=== PATIENT | male | born 1955 ===

== ENCOUNTER 2017-10-02 13:19 | Inpatient (IN) | payer MEDICAID ==
[2017-10-02] MEDS: NS 0.9% 1000 ML*IV.FLUID IV ONE ×2 (13:53→15:40)
--- NOTE | 2017-10-02 14:19 | RAD ---
INDICATION: Shortness of breath. COMPARISON: There are no prior studies available for comparison. TECHNIQUE: A portable view of the chest was obtained. FINDINGS: The heart is within normal limits in size. There is a patchy infiltrate in the mid and lower right lung field. There is suggestion of mild volume loss in the right lung. The left lung appears clear. No pleural effusion is seen. IMPRESSION: RIGHT LUNG INFILTRATE, RECOMMEND FOLLOW-UP CHEST X-RAYS TO RESOLUTION.
[2017-10-02 14:30] LABS: ABS Basophils 0.1 10^3/ul (0-0.2); ABS Eosinophils 0.1 10^3/ul (0-0.6); ABS Lymphocytes 0.7 10^3/ul (1.0-4.8); ABS Monocytes 0.7 10^3/ul (0-0.8); ABS Neutrophils 18.6 10^3/ul (1.5-7.7); ABS Nucleated RBC 0 10^3/ul; Eosinophil % 0.3 % (0-6); Hematocrit 38 % (42-52); Hemoglobin 12.1 g/dl (14.0-18.0); Lymphocyte % 3.3 % (25-47); Mean Corpuscular HGB Conc 32 g/dl (31-36); Mean Corpuscular Hemoglobin 28 pg (27-31); Mean Corpuscular Volume 86 fL (80-94); Nucleated Red Blood Cells % 0; Platelet Count 514 10^3/ul (150-450); Red Blood Count 4.39 10^6/ul (4.0-5.4); Red Cell Distribution Width 14 % (10.5-15); White Blood Count 20.1 10^3/ul (3.5-10.8)
[2017-10-02 14:40] LABS: INR 1.3 (0.77-1.02)
[2017-10-02 14:49] LABS: EGFR Non-African American 62.1 (>60)
[2017-10-02] MEDS ORDERED: Oseltamivir CAP* 75 MG CAP PO ONE (15:27)
[2017-10-02] MEDS ORDERED: Levofloxacin 750 MG IVPREMIX(* 750 MG/150 ML BAG IVPB ONE (15:27)
[2017-10-02] MEDS ORDERED: Acetaminophen TAB* 325 MG PO PRN (17:16)
[2017-10-02] MEDS ORDERED: PROCHLORPERAZINE INJ 5 MG/ML 2 ML VIAL IV PRN (17:16)
[2017-10-02] MEDS ORDERED: Albuterol/Ipratropium NEB.SOL* Albuterol 2.5 MG/Ipratropium 0.5 MG 3 ML INH PRN (17:16)
--- NOTE | 2017-10-02 21:07 | HP ---
CC: HUGO Francisco * HISTORY AND PHYSICAL: DATE OF ADMISSION: 10/02/17 TIME OF EVALUATION: 4:45 p.m. PRIMARY CARE PROVIDER: HUGO Francisco CHIEF COMPLAINT: "I got the flu." HISTORY OF PRESENT ILLNESS: Mr. Jenkins is a 62-year-old male with a past medical history of COPD, coronary artery disease status post stent who presented to the emergency room with complaints of cough, shortness of breath, and body aches. He states that a week ago, he started to have body aches, chills, cough, shortness of breath and the symptoms have progressed over time. He did not seek medical attention and today he felt really worse as he started to have some nausea, diarrhea on top of his respiratory symptoms. He states sick contacts at home. On arrival to the emergency room, he was found to be febrile with a temperature of 102, tachycardic, and his workup revealed influenza and pneumonia, the reason why the hospitalist service was called for admission. PAST MEDICAL HISTORY: 1. COPD. The patient is on home O2. 2. Coronary artery disease. The patient states he had stents placed years ago in [place], but when asked the name of the hospital or the town so we could records, he states that he does not remember that he moved around a lot and does not know. MEDICATION LIST: None. The patient states since he moved to [place] 2 years ago, he did not have a primary care provider, so he stopped taking his medications since. ALLERGIES: No known drug allergies. SOCIAL HISTORY: The patient was a smoker since he was a teenager up to 2 packs a day and he quit in 2011. He denies alcohol or drug use. The patient lives with his cousin and she is his surrogate decision maker, Esmer Silva, phone number is [phone]. REVIEW OF SYSTEMS: A 14-point review of systems was performed, and all the pertinent negative and positive findings are in the HPI. PHYSICAL EXAMINATION GENERAL: The patient is middle-aged male with a disheveled appearance, sitting up in the ED stretcher, in no acute distress. VITAL SIGNS: Temperature 102, heart rate is 97, respiratory rate is 22, oxygen saturation 95% on 2 L nasal cannula, and blood pressure is 120/68. HEENT: Pupils are equal. Moist mucous membranes. CHEST: Breath sounds are present bilaterally with scattered wheeze. CVS: Normal S1, S2. Regular rate and rhythm. ABDOMEN: Soft. Bowel sounds are present. EXTREMITIES: No edema. NEURO: He is alert, oriented x3. Able to move all 4 extremities. LABORATORY AND IMAGING DATA: The patient had a CBC that showed WBC 20.1, hemoglobin of 12.1, hematocrit of 38, platelets of 514 with 92% neutrophils. INR is 1.3. Chemistries showed a sodium of 136, potassium 4.8, chloride 103, CO2 24, BUN 17, creatinine of 1.19, glucose of 114. Lactic acid of 1.1. Calcium of 9. LFTs are normal. Troponin 0.12. CRP is 186.5. Procalcitonin is 0.3. Influenza B was positive. Chest x-ray showed a right lung infiltrate. EKG done on 10/02/17 at 1:30 p.m. showed sinus tachycardia at 106 beats per minute with PVC. There is no prior EKG to compare. ASSESSMENT AND PLAN: Mr. Jenkins is a 62-year-old male with a past medical history of chronic obstructive pulmonary disease, coronary artery disease and noncompliance, who presented to the emergency room with complaints of shortness of breath, cough, and fever found to have severe sepsis secondary to influenza and pneumonia. 1. Severe sepsis. The patient's presentation was compatible with systemic inflammatory response syndrome on admission with fever, tachycardia, and leukocytosis. He also has suspected acute kidney injury and elevated troponins. Source is influenza and pneumonia. 2. Influenza. The patient will be continued on Tamiflu. 3. Pneumonia. Blood cultures were sent. His sputum culture will be ordered and we are also going to check Legionella and pneumococcal antigen. He will be started on levofloxacin empirically. We are going to continue IV hydration and bronchodilators. 4. Chronic obstructive pulmonary disease. At this point, his chronic obstructive pulmonary disease appears to be stable. We are going to continue bronchodilators. 5. Elevated troponin. Suspect demand ischemia in a patient with reported coronary artery disease. Unfortunately, the patient does not recall the name of the hospital or the town where he had his procedure done, so we would not be able to obtain records at this point. I am going to start him on aspirin. He is going to have serial troponins and I am going to check an echocardiogram to assess his LV function. We are going to check serial troponins until they peak. Depending on the result, he may require a stress test after his infection is resolved. 6. Probable acute kidney injury. The patient's creatinine is 1.19, but we do not have a prior value to compare. He will be continued on IV hydration and we will monitor his renal function. We are going to check a urinalysis. 7. DVT prophylaxis. The patient has a score of 3 on the DVT Prophylaxis Risk Assessment Guide and he will be started on subcutaneous heparin. 8. Code status is full. I am also going to request a social media content specialist consultation to assist with his medical noncompliance. TIME SPENT: Approximately 65 minutes was spent with the patient interview, medical records review, physical examination to complete this admission; more than half of this time was spent [id number] with the patient and coordination of care. [id number]/[facility] #: [id number] SHARRI
--- NOTE | 2017-10-02 21:27 | ED ---
Jim Kemp Gabriel, scribed for Woody Stanley MD on 10/02/17 at 1400 . Influenza-Like Illness - HPI Summary HPI Summary: This patient is a 62 year old M BIBA to [facility] with a chief complaint of flu like illness that began today. The patient rates the pain 2/10 in severity. Patient reports fever, cough, general malaise, decrease appetite, diarrhea, and nasal congestion. Pt is on 2L NC at home. Hx COPD - History of Current Complaint Chief Complaint: EDFluSymptoms Time Seen by Provider: 10/02/17 13:29 Hx Obtained From: Patient Onset/Duration: Lasting Hours, Still Present Severity: Moderate Associated Signs & Symptoms: Fever, Cough, Nasal Congestion, Diarrhea - Allergy/Home Medications Allergies/Adverse Reactions: Allergies Allergy/AdvReac Type Severity Reaction Status Date / Time No Known Allergies Allergy Verified 10/02/17 13:27 Home Medications: Home Medications NK [No Home Medications Reported] 10/02/17 [History Confirmed 10/02/17] PMH/Surg Hx/FS Hx/Imm Hx Respiratory History: Reports: Hx Chronic Obstructive Pulmonary Disease (COPD) Sensory History: Reports: Hx Contacts or Glasses Opthamlomology History: Reports: Hx Contacts or Glasses EENT History: Denies: Hx Deafness Infectious Disease History: No Infectious Disease History: Denies: Traveled Outside the [place] in Last 30 Days - Family History Known Family History: Positive: Respiratory Disease Negative: Seizure Disorder - Social History Alcohol Use: None Substance Use Type: Reports: None Smoking Status (MU): Former Smoker Review of Systems Constitutional: Other - decreased appetite Positive: Fever, Other - general malaise Positive: Other - nasal congestion Positive: Cough Positive: Diarrhea All Other Systems Reviewed And Are Negative: Yes Physical Exam - Summary Physical Exam Summary: Appearance: The patient is an elderly male who is ill appearing Skin: The skin is warm and dry and skin color reflects adequate perfusion. HEENT: The head is normocephalic and atraumatic. The pupils are equal and reactive. The conjunctivae are clear and without drainage. Nares are patent and without drainage. Mouth reveals moist mucous membranes and the throat is without erythema and exudate. The external ears are intact. The ear canals are patent and without drainage. The tympanic membranes are intact. Neck: the neck is supple with full range of motion and non-tender. There are no carotid bruits. There is no neck vein distension. Respiratory: Chest is non-tender. No retraction with breathing no accessory muscle use. Extremely diminished breath sounds Cardiovascular: tachycardic and rhythm. There is no murmur or rub auscultated. There is no peripheral edema and pulses are symmetrical and equal. Abdomen: The abdomen is soft and non-tender. There are normal bowel sounds heard in all four quadrants and there is no organomegaly palpated. Musculoskeletal: There is no back tenderness noted. Extremities are non-tender with full range of motion. There is good capillary refill. There is no peripheral edema or calf tenderness elicited. Neurological: Patient is alert and oriented to person, place and time. The patient has symmetrical motor strength in all four extremities. Cranial nerves are grossly intact. Deep tendon reflexes are symmetrical and equal in all four extremities. Psychiatric: The patient has an appropriate affect and does not exhibit any anxiety or depression. Triage Information Reviewed: Yes Vital Signs On Initial Exam: Initial Vitals Pulse Resp Pulse Ox 143 29 90 10/02/17 13:24 10/02/17 13:24 10/02/17 13:24 Vital Signs Reviewed: Yes Diagnostics - Vital Signs Vital Signs Temp Pulse Resp BP Pulse Ox 10/02/17 13:26 139 22 93/76 92 10/02/17 13:25 102 F 146 26 93/76 89 10/02/17 13:24 143 29 90 - Laboratory Lab Results: Lab Results 10/02/17 10/02/17 10/02/17 Range/Units 13:50 14:15 14:15 WBC (3.5-10.8) 10^3/ul RBC (4.0-5.4) 10^6/ul Hgb (14.0-18.0) g/dl Hct (42-52) % MCV (80-94) fL MCH (27-31) pg MCHC (31-36) g/dl RDW (10.5-15) % Plt Count (150-450) 10^3/ul MPV (7.4-10.4) um3 Neut % (Auto) (38-83) % Lymph % (Auto) (25-47) % [place] % (Auto) (0-7) % Eos % (Auto) (0-6) % Baso % (Auto) (0-2) % Absolute Neuts (auto) (1.5-7.7) 10^3/ul Absolute Lymphs (auto) (1.0-4.8) 10^3/ul Absolute Monos (auto) (0-0.8) 10^3/ul Absolute Eos (auto) (0-0.6) 10^3/ul Absolute Basos (auto) (0-0.2) 10^3/ul Absolute Nucleated RBC 10^3/ul Nucleated RBC % INR (Anticoag Therapy) 1.30 H (0.77-1.02) APTT 30.6 (26.0-36.3) seconds Sodium 136 L (139-145) mmol/L Potassium 4.8 (3.5-5.0) mmol/L Chloride 103 (101-111) mmol/L Carbon Dioxide 24 (22-32) mmol/L Anion Gap 9 (2-11) mmol/L BUN 17 (6-24) mg/dL Creatinine 1.19 H (0.67-1.17) mg/dL Est GFR ( Amer) 79.9 (>60) Est GFR (Non-Af Amer) 62.1 (>60) BUN/Creatinine Ratio 14.3 (8-20) Glucose 114 H (70-100) mg/dL Lactic Acid (0.5-2.0) mmol/L Calcium 9.0 (8.6-10.3) mg/dL Total Bilirubin 0.40 (0.2-1.0) mg/dL AST 16 (13-39) U/L ALT 16 (7-52) U/L Alkaline Phosphatase 68 (34-104) U/L Troponin I 0.12 H* (<0.04) ng/mL C-Reactive Protein 186.50 H (< 5.00) mg/L Total Protein 8.2 (6.4-8.9) g/dL Albumin 3.1 L (3.2-5.2) g/dL Globulin 5.1 H (2-4) g/dL Albumin/Globulin Ratio 0.6 L (1-3) Procalcitonin (<0.6) ng/mL Influenza A (Rapid) Negative (Negative) Influenza B (Rapid) Positive A (Negative) 10/02/17 10/02/17 10/02/17 Range/Units 14:15 14:15 14:15 WBC 20.1 H (3.5-10.8) 10^3/ul RBC 4.39 (4.0-5.4) 10^6/ul Hgb 12.1 L (14.0-18.0) g/dl Hct 38 L (42-52) % MCV 86 (80-94) fL MCH 28 (27-31) pg MCHC 32 (31-36) g/dl RDW 14 (10.5-15) % Plt Count 514 H (150-450) 10^3/ul MPV 7.0 L (7.4-10.4) um3 Neut % (Auto) 92.7 H (38-83) % Lymph % (Auto) 3.3 L (25-47) % [place] % (Auto) 3.4 (0-7) % Eos % (Auto) 0.3 (0-6) % Baso % (Auto) 0.3 (0-2) % Absolute Neuts (auto) 18.6 H (1.5-7.7) 10^3/ul Absolute Lymphs (auto) 0.7 L (1.0-4.8) 10^3/ul Absolute Monos (auto) 0.7 (0-0.8) 10^3/ul Absolute Eos (auto) 0.1 (0-0.6) 10^3/ul Absolute Basos (auto) 0.1 (0-0.2) 10^3/ul Absolute Nucleated RBC 0 10^3/ul Nucleated RBC % 0 INR (Anticoag Therapy) (0.77-1.02) APTT (26.0-36.3) seconds Sodium (139-145) mmol/L Potassium (3.5-5.0) mmol/L Chloride (101-111) mmol/L Carbon Dioxide (22-32) mmol/L Anion Gap (2-11) mmol/L BUN (6-24) mg/dL Creatinine (0.67-1.17) mg/dL Est GFR ( Amer) (>60) Est GFR (Non-Af Amer) (>60) BUN/Creatinine Ratio (8-20) Glucose (70-100) mg/dL Lactic Acid 1.1 (0.5-2.0) mmol/L Calcium (8.6-10.3) mg/dL Total Bilirubin (0.2-1.0) mg/dL AST (13-39) U/L ALT (7-52) U/L Alkaline Phosphatase (34-104) U/L Troponin I (<0.04) ng/mL C-Reactive Protein (< 5.00) mg/L Total Protein (6.4-8.9) g/dL Albumin (3.2-5.2) g/dL Globulin (2-4) g/dL Albumin/Globulin Ratio (1-3) Procalcitonin 0.3 (<0.6) ng/mL Influenza A (Rapid) (Negative) Influenza B (Rapid) (Negative) Result Diagrams: 10/02/17 14:15 10/02/17 14:15 Lab Statement: Any lab studies that have been ordered have been reviewed, and results considered in the medical decision making process. - Radiology CXR Radiology Interpretation Completed By: Radiologist - RIGHT LUNG INFILTRATE, RECOMMEND FOLLOW-UP CHEST X-RAYS TO RESOLUTION. Dr. Stanley has reviewed this report - EKG 13:30 Cardiac Rate: Tachycardia EKG Rhythm: Sinus Tachycardia - at 136 BPM EKG Interpretation: PVC's Re-Evaluation - Re-Evaluation First Eval Re-Evaluation Time: 16:15 Change: Unchanged Comment: I discussed admission with the patient. Flu Symptom Course/Dx - Course Course Of Treatment: Mr. Jenkins presented with cough and congestion and SOB although he is normally SOB. He presented febrile and tachycardic and was given IV fluids. CXR revealed an infiltrate and he was given Levaquin and his flu swab was positive so he got Tamiflu. He is being admitted to the hospitalist service. - Diagnoses Provider Diagnoses: Influenza, Sepsis, PNA (pneumonia) - Physician Notifications Discussed Care Of Patient With: Justyn Sosa Time Discussed With Above Provider: 16:10 Instructed by Provider To: Admit As Inpatient Critical Care Time: 30-74 min Discharge - Sign-Out/Discharge Documenting (check all that apply): Discharge - Discharge Plan Condition: Fair Disposition: ADMITTED TO [facility] - Billing Disposition and Condition Condition: FAIR Disposition: [facility] [place] The documentation as recorded by the Jim curran Gabriel accurately reflects the service I personally performed and the decisions made by me, Wooyd Stanley MD.
[2017-10-02 22:19] LABS: Urine Appearance Turbid; Urine Blood Negative (Negative); Urine Color Amber; Urine Ketones Trace (Negative); Urine Protein 1+(30 mg/dL) (Negative); Urine Specific Gravity 1.023 (1.010-1.030); Urine Urobilinogen Negative (Negative)
[2017-10-02] MEDS: Aspirin EC TAB* 81 MG TAB.EC PO SCH (22:38)
[2017-10-02] MEDS: NS 0.9% 1000 ML* 1,000 ML IV SCH (22:47)
[2017-10-02] MEDS: Heparin VIAL(*) 5000 UNITS/ML VIAL (FIVE THOUSAND) SUBCUT SCH (22:54)
--- NOTE | 2017-10-03 02:51 | PN ---
Progress Note - Progress Note Date of Service: 10/03/17 Note: paged for positive trop. Initial two were negative. Concern this is a false positive. Patient is not having chest pain currently. Will repeat troponin now.
[2017-10-03] MEDS: Oseltamivir CAP* 75 MG CAP PO SCH ×3 (03:58→20:22)
[2017-10-03 05:15] LABS: ABS Basophils 0 10^3/ul (0-0.2); ABS Eosinophils 0 10^3/ul (0-0.6); ABS Lymphocytes 0.5 10^3/ul (1.0-4.8); ABS Monocytes 0.3 10^3/ul (0-0.8); ABS Neutrophils 8.9 10^3/ul (1.5-7.7); ABS Nucleated RBC 0 10^3/ul; Eosinophil % 0 % (0-6); Hematocrit 34 % (42-52); Hemoglobin 10.8 g/dl (14.0-18.0); Mean Corpuscular HGB Conc 32 g/dl (31-36); Mean Corpuscular Hemoglobin 28 pg (27-31); Mean Corpuscular Volume 86 fL (80-94); Mean Platelet Volume 6.8 um3 (7.4-10.4); Nucleated Red Blood Cells % 0; Platelet Count 435 10^3/ul (150-450); Red Blood Count 3.92 10^6/ul (4.0-5.4); Red Cell Distribution Width 14 % (10.5-15); White Blood Count 9.7 10^3/ul (3.5-10.8)
[2017-10-03 05:28] LABS: EGFR Non-African American 74.2 (>60)
[2017-10-03] MEDS: Heparin VIAL(*) 5000 UNITS/ML VIAL (FIVE THOUSAND) SUBCUT SCH ×3 (06:23→20:22)
[2017-10-03] MEDS: Aspirin EC TAB* 81 MG TAB.EC PO SCH (08:22)
[2017-10-03] MEDS ORDERED: Perflutren Lipid Microsphere* 3 ML VIAL ONE (09:04)
[2017-10-03] MEDS: NS 0.9% 1000 ML* 1,000 ML IV SCH (10:04)
[2017-10-03] MEDS: methylPREDNISolone SOD 40 MG* 1 ML VIAL IV SCH (12:01)
--- NOTE | 2017-10-03 12:10 | ECHO ---
Patient: SARABJIT GUZMAN [facility] Rec#: [id number] : 1955 Date: 10/03/2017 Age: 62y Height: 177.8 cm / 70.0 in Weight: 95.25 kg / 209.9 lbs Sex: M BSA: 2.13 Room#: 435 Admit Date#: 10/02/2017 Type: Inpatient Referring: Lissette Zuniga MD Reading: Travis Reed MD Tugboat Captain: Elaine Quintero RDCS CC: Sarabjit HUGO Mcmanus Transthoracic Echocardiogram Indication: Dyspnea,CAD BP: 137/79 HR: 92 Rhythm: NSR Findings History: COPD with home oxygen,CAD with prior PCI,SOB. This study was completed with HOB at 90 degrees . Completed at 0958. Technical Comments: The study is technically difficult. Definity used to enhance images. The study is technically limited due to the patient's history of COPD. The study is technically limited due to the patient's smoking history. The study was technically limited due to the patient's inability to lay in the left lateral decubitus position. Left Ventricle: The left ventricle is not well visualized. Global left ventricular wall motion and contractility are within normal limits. There is normal left ventricular systolic function. The estimated ejection fraction is 55-60%. Abnormal left ventricular diastolic function is observed. Left Atrium: The left atrium is not well visualized. Right Ventricle: The right ventricle is not well visualized.but appears to be normal in size and function on subcostal imaging with definity enhancement. Right Atrium: The right atrium is not well visualized. Aortic Valve: The aortic valve structure is not well visualized. There is no evidence of aortic regurgitation. There is no evidence of aortic stenosis. Mitral Valve: The mitral valve structure is not well visualized. There is a trace of mitral regurgitation. Tricuspid Valve: The tricuspid valve structure is not well visualized. Pulmonic Valve: The pulmonic valve structure is not well visualized. Pericardium: There is no significant pericardial effusion. Aorta: The aorta is not well visualized. Pulmonary Artery: The main pulmonary artery is not well visualized. Venous: The venous system is not well visualized. Contrast: Definity was used to optimize study. A total of 5 ml used. Intravenous contrast was used to enhance endocardial border definition. Conclusions The study is technically limited due to the patient's history of COPD. There is normal left ventricular systolic function. The estimated ejection fraction is 55-60%. Global left ventricular wall motion and contractility are within normal limits. Functionally benign heart valves on limited assessment. There is no prior echocardiogram available to compare with at this time. Measurements Name Value Normal Range MV E-wave Vmax 0.8 m/sec - MV deceleration time 187 msec - MV A-wave Vmax 1.1 m/sec - MV E:A ratio 0.73 ratio - LV septal e' Vmax 0.05 m/sec - LV lateral e' Vmax 0.08 m/sec - LV E:e' septal ratio 16 ratio - LV E:e' lateral ratio 10 ratio - Name Value Normal Range AV Vmax 0.9 m/sec - AV VTI 19.2 cm - AV peak gradient 3.36 mmHg - AV mean gradient 1.49 mmHg - LVOT Vmax 0.7 m/sec - LVOT VTI 13.5 cm - LVOT peak gradient 2.13 mmHg - LVOT mean gradient 0.98 mmHg -
[2017-10-03] MEDS: Levofloxacin 750 MG IVPREMIX(* 750 MG/150 ML BAG IVPB SCH (14:33)
--- NOTE | 2017-10-03 17:08 | PN ---
Subjective Date of Service: 10/03/17 Interval History: HOSPITALIST PROGRESS NOTE Patient seen and examined at bedside. He feels better today. Still has significant cough, but dyspnea is less intense. No further episodes of diarrhea. Tolerating diet. Family History: Unchanged from Admission Social History: Unchanged from Admission Past Medical History: Unchanged from Admission Objective Active Medications: Acetaminophen (Tylenol Tab*) 650 mg PO Q6H PRN PRN Reason: pain/fever Albuterol/Ipratropium (Duoneb (Albuterol 2.5 Mg/Ipratropium 0.5 Mg)) 1 neb INH Q4H PRN PRN Reason: SOB/WHEEZING Aspirin (Aspirin Ec Tab*) 81 mg PO DAILY [facility] Last Admin: 10/03/17 08:22 Dose: 81 mg Heparin Sodium (Porcine) (Heparin Vial(*)) 5,000 units SUBCUT Q8HR [facility] Last Admin: 10/03/17 14:33 Dose: 5,000 units Levofloxacin/Dextrose (Levaquin 750 Mg Ivpremix(*)) 750 mg in 150 mls @ 100 mls /hr IVPB Q24H [facility] Last Admin: 10/03/17 14:33 Dose: 100 mls/hr Methylprednisolone Sodium Succinate (Solu-Medrol 40 Mg) 40 mg IV Q12H [facility] Last Admin: 10/03/17 12:01 Dose: 40 mg Oseltamivir Phosphate (Tamiflu Cap*) 75 mg PO BID [facility] Stop: 10/06/17 21:01 Last Admin: 10/03/17 08:22 Dose: 75 mg Prochlorperazine Edisylate (Compazine Inj*) 5 mg IV Q6H PRN PRN Reason: NAUSEA/VOMITING Vital Signs - 8 hr 10/03/17 10/03/17 10/03/17 11:12 15:24 16:44 Temperature 97.5 F 97.3 F Pulse Rate 94 88 82 Respiratory 18 16 Rate Blood Pressure 145/72 134/109 136/78 (mmHg) O2 Sat by Pulse 98 99 Oximetry Oxygen Devices in Use Now: Nasal Cannula Appearance: Pleasant gentleman sitting up in bed in NAD. Eyes: No Scleral Icterus Ears/Nose/Mouth/Throat: Mucous Membranes Moist Neck: Trachea Midline Respiratory: Symmetrical Chest Expansion and Respiratory Effort, - - BS+ bilaterally decreased with scattered wheezes Cardiovascular: RRR - Normal S1 and S2 Abdominal: NL Sounds; No Tenderness; No Distention Neurological: Alert and Oriented x 3, NL Muscle Strength and Tone Result Diagrams: 10/03/17 05:04 10/03/17 05:04 Assess/Plan/Problems-Billing Assessment: Mr. Jenkins is a 62yo M with PMH of COPD, CAD s/p stents, who presented to ED with c/o cough and SOB, found to have severe sepsis secondary to Influenza and Pneumonia. - Patient Problems (1) Severe sepsis Comment: - Presentation compatible with sepsis with leukocytosis, fever, and tachycardia. - Source is Influenza and Pneumonia. (2) Influenza Comment: - Continue Tamiflu. (3) Pneumonia Comment: - Blood cultures show no growth so far. - Legeionella and pneumococcal Ag were negative. - Continue Levofloxacin. (4) COPD exacerbation Comment: - Secondary to the above. - Continue bronchodilators and steroids. (5) CAD (coronary artery disease) Comment: - Troponin levels fluctuated, could be secondary to demand ischemia in the setting of sepsis. - Continue Aspirin. - Beta blockers contraindicated in the setting of bronchospasm. - Will need stress test as outpatient when infection resolved. (6) DVT prophylaxis Comment: - SQ heparin. (7) Full code status
[2017-10-04] MEDS: methylPREDNISolone SOD 40 MG* 1 ML VIAL IV SCH ×3 (00:09→23:28)
[2017-10-04] MEDS: Heparin VIAL(*) 5000 UNITS/ML VIAL (FIVE THOUSAND) SUBCUT SCH ×3 (06:17→21:30)
[2017-10-04] MEDS: Aspirin EC TAB* 81 MG TAB.EC PO SCH (08:32)
[2017-10-04] MEDS: Oseltamivir CAP* 75 MG CAP PO SCH ×2 (08:32→21:30)
--- NOTE | 2017-10-04 09:13 | PN ---
Subjective Date of Service: 10/04/17 Interval History: HOSPITALIST PROGRESS NOTE Patient seen and examined at bedside. He feels a little better today. His breathing is improved, closer to baseline. Moist cough persists. His major complaint at this time is diarrhea. Also concerned his family member "who gave me this infection" is admitted in the ICU. Family History: Unchanged from Admission Social History: Unchanged from Admission Past Medical History: Unchanged from Admission Objective Active Medications: Acetaminophen (Tylenol Tab*) 650 mg PO Q6H PRN PRN Reason: pain/fever Albuterol/Ipratropium (Duoneb (Albuterol 2.5 Mg/Ipratropium 0.5 Mg)) 1 neb INH Q4H PRN PRN Reason: SOB/WHEEZING Aspirin (Aspirin Ec Tab*) 81 mg PO DAILY [facility] Last Admin: 10/04/17 08:32 Dose: 81 mg Heparin Sodium (Porcine) (Heparin Vial(*)) 5,000 units SUBCUT Q8HR [facility] Last Admin: 10/04/17 06:17 Dose: 5,000 units Levofloxacin/Dextrose (Levaquin 750 Mg Ivpremix(*)) 750 mg in 150 mls @ 100 mls /hr IVPB Q24H [facility] Last Admin: 10/03/17 14:33 Dose: 100 mls/hr Methylprednisolone Sodium Succinate (Solu-Medrol 40 Mg) 40 mg IV Q12H [facility] Last Admin: 10/04/17 00:09 Dose: 40 mg Oseltamivir Phosphate (Tamiflu Cap*) 75 mg PO BID [facility] Stop: 10/06/17 21:01 Last Admin: 10/04/17 08:32 Dose: 75 mg Prochlorperazine Edisylate (Compazine Inj*) 5 mg IV Q6H PRN PRN Reason: NAUSEA/VOMITING Vital Signs - 8 hr 10/04/17 07:32 Temperature 97.8 F Pulse Rate 90 Respiratory 24 Rate Blood Pressure 143/72 (mmHg) O2 Sat by Pulse 100 Oximetry Oxygen Devices in Use Now: Nasal Cannula - 2 liters Appearance: Pleasant gentleman sitting up in bed in NAD. Eyes: No Scleral Icterus Ears/Nose/Mouth/Throat: Mucous Membranes Moist Neck: Trachea Midline Respiratory: Symmetrical Chest Expansion and Respiratory Effort, - - BS+ bilaterally decreased with scattered wheezes Cardiovascular: RRR - Normal S1 and S2 Extremities: No Edema Neurological: Alert and Oriented x 3, NL Muscle Strength and Tone Result Diagrams: 10/03/17 05:04 10/03/17 05:04 Assess/Plan/Problems-Billing Assessment: Mr. Jenkins is a 62yo M with PMH of COPD, CAD s/p stents, who presented to ED with c/o cough and SOB, found to have severe sepsis secondary to Influenza and Pneumonia. - Patient Problems (1) Severe sepsis Comment: - Presentation compatible with sepsis with leukocytosis, fever, and tachycardia. - Source is Influenza and Pneumonia. (2) Influenza Comment: - Continue Tamiflu. (3) Diarrhea Comment: - Secondary to diarrhea. - Start Imodium for symptomatic relief. (4) Pneumonia Comment: - Blood cultures show no growth so far. - Legionella and pneumococcal Ag were negative. - Continue Levofloxacin. (5) COPD exacerbation Comment: - Secondary to the above. - Continue bronchodilators and steroids. (6) CAD (coronary artery disease) Comment: - Troponin levels fluctuated, could be secondary to demand ischemia in the setting of sepsis. - Continue Aspirin. - Beta blockers contraindicated in the setting of bronchospasm. - Will need stress test as outpatient when infection resolved. (7) DVT prophylaxis Comment: - SQ heparin. (8) Full code status
[2017-10-04] MEDS ORDERED: Loperamide CAP* 2 MG PO PRN (09:58)
[2017-10-04] MEDS: Levofloxacin 750 MG IVPREMIX(* 750 MG/150 ML BAG IVPB SCH (14:56)
[2017-10-04] MEDS: CMC:Melatonin (NF) 3 MG TAB PO SCH (21:30)
[2017-10-05] MEDS: Heparin VIAL(*) 5000 UNITS/ML VIAL (FIVE THOUSAND) SUBCUT SCH ×3 (06:02→21:37)
--- NOTE | 2017-10-05 08:57 | PN ---
Subjective Date of Service: 10/05/17 Interval History: HOSPITALIST PROGRESS NOTE Patient seen and examined at bedside. He feels a little better today, but still dyspneic on exertion. Diarrhea has subsided a little. Tolerating diet well. Family History: Unchanged from Admission Social History: Unchanged from Admission Past Medical History: Unchanged from Admission Objective Active Medications: Acetaminophen (Tylenol Tab*) 650 mg PO Q6H PRN PRN Reason: pain/fever Albuterol/Ipratropium (Duoneb (Albuterol 2.5 Mg/Ipratropium 0.5 Mg)) 1 neb INH Q4H PRN PRN Reason: SOB/WHEEZING Aspirin (Aspirin Ec Tab*) 81 mg PO DAILY [facility] Last Admin: 10/04/17 08:32 Dose: 81 mg Heparin Sodium (Porcine) (Heparin Vial(*)) 5,000 units SUBCUT Q8HR [facility] Last Admin: 10/05/17 06:02 Dose: 5,000 units Levofloxacin/Dextrose (Levaquin 750 Mg Ivpremix(*)) 750 mg in 150 mls @ 100 mls /hr IVPB Q24H [facility] Last Admin: 10/04/17 14:56 Dose: 100 mls/hr Loperamide HCl (Imodium Cap*) 2 mg PO .SEE DIRECTIONS PRN PRN Reason: DIARRHEA Last Admin: 10/04/17 10:17 Dose: 2 mg Melatonin (Melatonin (Nf)) 3 mg PO BEDTIME [facility] Last Admin: 10/04/17 21:30 Dose: 3 mg Methylprednisolone Sodium Succinate (Solu-Medrol 40 Mg) 40 mg IV Q12H [facility] Last Admin: 10/04/17 23:28 Dose: 40 mg Oseltamivir Phosphate (Tamiflu Cap*) 75 mg PO BID [facility] Stop: 10/06/17 21:01 Last Admin: 10/04/17 21:30 Dose: 75 mg Prochlorperazine Edisylate (Compazine Inj*) 5 mg IV Q6H PRN PRN Reason: NAUSEA/VOMITING Vital signs 10/05/17 08:02 Temperature 97.5 F Pulse Rate 82 Respiratory 20 Rate Blood Pressure 133/58 (mmHg) O2 Sat by Pulse 95 Oximetry Oxygen Devices in Use Now: Nasal Cannula - 2 liters Appearance: Pleasant gentleman sitting up in bed in NAD. Eyes: No Scleral Icterus Ears/Nose/Mouth/Throat: Mucous Membranes Moist Neck: Trachea Midline Respiratory: Symmetrical Chest Expansion and Respiratory Effort, - - BS+ bilaterally decreased with scattered rhonchi Cardiovascular: RRR - Normal S1 and S2 Neurological: Alert and Oriented x 3, NL Muscle Strength and Tone Result Diagrams: 10/03/17 05:04 10/03/17 05:04 Assess/Plan/Problems-Billing Assessment: Mr. Jenkins is a 62yo M with PMH of COPD, CAD s/p stents, who presented to ED with c/o cough and SOB, found to have severe sepsis secondary to Influenza and Pneumonia. - Patient Problems (1) Severe sepsis Comment: - Presentation compatible with sepsis with leukocytosis, fever, and tachycardia. - Source is Influenza and Pneumonia. (2) Influenza Comment: - Continue Tamiflu. (3) Diarrhea Comment: - Secondary to Influenza - continue Imodium for symptomatic relief. (4) Pneumonia Comment: - Blood cultures show no growth so far. - Legionella and pneumococcal Ag were negative. - Change Levofloxacin to PO. (5) COPD exacerbation Comment: - Secondary to the above. - Continue bronchodilators and steroids. (6) CAD (coronary artery disease) Comment: - Troponin levels fluctuated, could be secondary to demand ischemia in the setting of sepsis. - Continue Aspirin. - Beta blockers contraindicated in the setting of bronchospasm. - Will need stress test as outpatient when infection resolved. (7) DVT prophylaxis Comment: - SQ heparin. (8) Full code status Status and Disposition: Inpatient. Anticipate d/c in AM.
[2017-10-05] MEDS: Oseltamivir CAP* 75 MG CAP PO SCH ×2 (08:58→21:37)
[2017-10-05] MEDS: Aspirin EC TAB* 81 MG TAB.EC PO SCH (08:58)
[2017-10-05] MEDS ORDERED: Albuterol HFA INHALER* 8 gm MDI INH PRN (09:04)
[2017-10-05] MEDS: Tiotropium CAP.INH* CAP.INH/18 MCG (USE ORDER SET !) INH SCH (09:55)
[2017-10-05] MEDS ORDERED: Spiriva Inhaler DEVICE* 1 EACH DEVICE INH SCH (10:00)
[2017-10-05] MEDS ORDERED: Spiriva Inhaler DEVICE* 1 EACH DEVICE SCH (10:00)
[2017-10-05] MEDS: predniSONE TAB* 20 MG PO SCH (11:51)
[2017-10-05] MEDS ORDERED: Levofloxacin TAB* 750 MG PO SCH (15:00)
[2017-10-05] MEDS: CMC:Melatonin (NF) 3 MG TAB PO SCH (21:37)
[2017-10-06] MEDS: Heparin VIAL(*) 5000 UNITS/ML VIAL (FIVE THOUSAND) SUBCUT SCH (06:13)
[2017-10-06 08:04] VITALS: BP 131/61
[2017-10-06] MEDS: Tiotropium CAP.INH* CAP.INH/18 MCG (USE ORDER SET !) INH SCH (08:42)
[2017-10-06] MEDS ORDERED: Spiriva Inhaler DEVICE* 1 EACH DEVICE INH ONE (09:00)
[2017-10-06] MEDS: predniSONE TAB* 20 MG PO SCH (09:31)
[2017-10-06] MEDS: Oseltamivir CAP* 75 MG CAP PO SCH (09:32)
[2017-10-06] MEDS: Aspirin EC TAB* 81 MG TAB.EC PO SCH (09:32)
--- NOTE | 2017-10-07 00:45 | DS ---
CC: HUGO Francisco* DISCHARGE SUMMARY: DATE OF ADMISSION: 10/02/17 DATE OF DISCHARGE: 10/06/17 PRIMARY CARE PROVIDER: HUGO Francisco. DISCHARGE DIAGNOSES: 1. Severe sepsis. 2. Influenza. 3. Pneumonia. 4. Chronic obstructive pulmonary disease exacerbation secondary to the above. 5. Leukocytosis. 6. Mild hyponatremia. SECONDARY DIAGNOSES: 1. Chronic obstructive pulmonary disease on home O2, 2 L. 2. Coronary artery disease status post stent. MEDICATIONS LIST: All these medications are new to the patient. 1. Albuterol HFA 2 puffs inhaled q.4 hours p.r.n. shortness of breath. 2. Aspirin 81 mg p.o. daily. 3. Levofloxacin 750 mg p.o. daily for 3 more days. 4. Tamiflu 75 mg p.o. b.i.d. for 1 more day. 5. Loperamide 2 mg p.o. after each diarrheal bowel movement, up to 8 mg a day. 6. Prednisone taper as follows: 40 mg for 3 days, 30 mg for 3 days, 20 mg for 3 days, 10 mg for 3 days, 5 mg for 3 days and stop. 7. Spiriva 1 capsule inhaled daily. HOSPITAL COURSE: Mr. Jenkins is a 62-year-old male with past medical history as stated above that presented to the emergency room on 10/02/17 with complaints of body aches, chills, cough, shortness of breath. His workup in the emergency room revealed that he was septic with a temperature of 102, tachycardia and leukocytosis with 20,000 neutrophils. The patient's chest x-ray in the emergency room revealed a patchy infiltrate in the patient's mid and lower right lung field. He was admitted to the medical floor for further evaluation and treatment. He was started on IV fluids, levofloxacin, Tamiflu and had improvement of his symptoms. He tested positive for influenza B. Blood cultures were negative as well as Legionella and pneumococcal antigens. For his COPD exacerbation, the patient was started on IV steroids. They were later on transitioned to oral ones and also bronchodilators. Of note is the fact that the patient reports a history of coronary artery disease status post stent when he lived in [place], but unfortunately, he does not recall the name of the hospital or even the town, so I was not able to obtain any records. On admission, he was found to have a mildly elevated troponin at 0.12 that peaked at 0.44. He had no acute ischemic changes on his EKG and a transthoracic echocardiogram that was a limited study due to his COPD , but it showed a normal left ventricular systolic function with estimated ejection fraction of 55% to 60%, global left ventricular wall motion and contractility are within normal limits. With his history of coronary artery disease, I believe this troponin elevation was secondary to demand ischemia in the setting of severe sepsis, but the patient would benefit of a stress test later on when his infection is resolved to better risk stratify him. At this point, I am not going to start a beta-quiana due to his COPD, but consideration could be given for it and also to check his lipid profile in the future and start a statin. The patient was advised that he needs to follow up with his primary care provider and he needs to be compliant with his medications as he was with no medications for almost 2 years. He is medically stable to be discharged home today. PHYSICAL EXAMINATION: Vital Signs: Temperature 97.6, heart rate is 85, respiratory rate is 18, oxygen saturation is 99% on 2 L nasal cannula, blood pressure is 131/61. General: The patient is a pleasant gentleman sitting up in bed in no acute distress. CVS: Normal S1 and S2. Regular rate and rhythm. Chest: Breath sounds were bilaterally decreased with no added sounds. Extremities: No edema. Neuro: He is alert and oriented x3 Able to move all 4 extremities. DIET: Heart healthy diet. ACTIVITIES: As tolerated. DISPOSITION: Home. STATUS IN THE HOSPITAL: Inpatient. Please keep in mind this is a summarized version of this patient's hospital stay. If you need more information, please feel free to call me at [phone] or please obtain the full medical records. TIME SPENT: Approximately 45 minutes were spent to complete this discharge. [id number]/CPS #: [id number] SHARRI
== END 2017-10-06 13:09 | disposition home or self-care (01) | DRG 720 ==
LOC: ED 13:19 → MEDTELE 17:12
PROVIDERS: ADMIT Internal Medicine; ATTEND Internal Medicine
DX: A41.9 Sepsis, unspecified organism (principal); J10.00 Influenza due to other identified influenza virus with unspecified type of pneumonia; N17.9 Acute kidney failure, unspecified; I24.8 Other forms of acute ischemic heart disease; J44.1 Chronic obstructive pulmonary disease with (acute) exacerbation; E87.1 Hypo-osmolality and hyponatremia; Z99.81 Dependence on supplemental oxygen; R65.20 Severe sepsis without septic shock; I25.10 Atherosclerotic heart disease of native coronary artery without angina pectoris; R74.8 Abnormal levels of other serum enzymes; Z87.891 Personal history of nicotine dependence; Z95.5 Presence of coronary angioplasty implant and graft; Z91.14 Patient's other noncompliance with medication regimen
CPT/HCPCS: 36415; 71045; 80048; 80053; 81003; 81015; 83605; 84145; 84484; 85025; 85610; 85730; 86140; 87040; 87086; 87502; 87899; 93005; 93306; 94640; 99285; A9270-GY; C8929; J1644; J2920; J7512